=== PATIENT | male | born 1975 | race Caucasian/White ===

== ENCOUNTER 2024-11-04 18:58 | Emergency (ER) | payer OTHER, SELFPAY ==
[2024-11-04 19:06] VITALS: BP 142/76; PULSE 84; TEMP 36.9; O2SAT 98; BMI 33.9
--- NOTE | 2024-11-04 19:13 | XR_ITS ---
The [address] [address] Patient Name: RACH JAIN MRN: [id number] date: 1975 Sex: M Assigned Patient Location: ER Current Patient Location: Accession/Order Number: [id number] Exam Date: 11/04/2024 19:35 Report Date: 11/04/2024 21:28 At the request of: SUZIE SANTOS Procedure: XR knee LT 3V EXAM: XR knee LT 3V HISTORY: pain COMPARISON: None. TECHNIQUE: AP, oblique, lateral x-ray left knee. FINDINGS: No fracture or significant joint effusion. Minor spurring. No significant joint space narrowing. No focal bone lesion. No periarticular calcification.. XR/XR knee LT 3V IMPRESSION: Mild degenerative spurring without fracture or significant joint effusion. Electronically authenticated by: HARRY RUDD Date: 11/04/2024 21:28
[2024-11-04] MEDS: KETOROLAC TROMETHAMINE 60 MG/2 ML VIAL IM (20:07)
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
[2024-11-04 20:30] VITALS: BP 115/76; PULSE 72; O2SAT 97
== END 2024-11-04 20:30 | disposition home or self-care (01) ==
PROVIDERS: Emergency Provider Student in an Organized Health Care Education/Training Program
DX: M25.562 Pain in left knee (principal)
CPT/HCPCS: 73562; 99284; J1885